=== PATIENT | female | born 1980 | race African-American/Black ===

== ENCOUNTER 2020-12-18 15:41 | Inpatient (IN) | payer OTHER ==
[2020-12-18 17:57] VITALS: BMI 22.3
[2020-12-18] MEDS ORDERED: IBUPROFEN 400 MG TABLET (FP) PO PRN (20:50)
[2020-12-18] MEDS ORDERED: MAGNESIUM CITRATE 300 ML BOTTLE PO PRN (20:50)
[2020-12-18] MEDS ORDERED: guaiFENesin 200 MG/10 ML 10 ML UNIT-DOSE CUPS PO PRN (20:50)
[2020-12-18] MEDS ORDERED: LOPERAMIDE HCL 2 MG CAPSULE PO PRN (20:50)
[2020-12-18] MEDS ORDERED: hydrOXYzine PAMOATE 25 MG CAPSULE (FP) PO PRN (20:50)
[2020-12-18] MEDS ORDERED: ACETAMINOPHEN 325 MG TABLET (FP) PO PRN (20:50)
[2020-12-18] MEDS ORDERED: MAGNESIUM HYDROX 2400MG/30ML ORAL SUSPENSION 30 ML CUP PO PRN (20:50)
[2020-12-18] MEDS ORDERED: MAG HYDROX/AL HYDROX/SIMETH 30 ML UNIT-DOSE CUP PO PRN (20:50)
[2020-12-18] MEDS ORDERED: P-EPHED 60MG/TRIPROLIDI 2.5MG TABLET PO PRN (20:50)
[2020-12-18] MEDS ORDERED: MELATONIN 5 MG TABLETS PO SCH (22:00)
[2020-12-18] MEDS ORDERED: THIAMINE HCL 100 MG TABLET (FP) PO SCH (22:00)
[2020-12-18] MEDS ORDERED: PT OWN MED DRAWER 7, Y5N ONE (23:46)
[2020-12-19 07:28] VITALS: BP 152/109; PULSE 74; TEMP 97.6
[2020-12-19] MEDS ORDERED: PRENATAL VITAMINS W/ FOLIC ACID TABLET (FP) PO SCH (10:00)
[2020-12-19] MEDS ORDERED: cloNIDine HCL 0.1 MG TABLET PO PRN (10:55)
[2020-12-19 11:18] LABS: HEMATOCRIT 35.4 % (32.4-45.2); HEMOGLOBIN 11.9 GM/dL (10.7-15.3); MCH 31.4 pg (25.7-33.7); MCHC 33.6 g/dl (32.0-36.0); MEAN CELL VOLUME 93.6 fl (80-96); MEAN PLT VOLUME 10.2 fl (7.5-11.1); PLATELET COUNT 213 10^3/uL (134-434); RBC 3.79 M/mm3 (3.60-5.2); RDW 14.2 % (11.6-15.6); WHITE BLOOD COUNT 5.6 K/mm3 (4.0-10.0)
[2020-12-19 11:33] LABS: ALBUMIN 3.4 g/dl (3.4-5.0); BLOOD UREA NITROGEN 10.8 mg/dL (7-18); CALCIUM 8.5 mg/dL (8.5-10.1)
[2020-12-19 11:37] LABS: CREATININE 0.8 mg/dL (0.55-1.3)
[2020-12-19 11:38] LABS: BILIRUBIN,TOTAL 0.3 mg/dL (0.2-1); TOT PROT 6.9 g/dl (6.4-8.2)
[2020-12-19] MEDS ORDERED: PT OWN MED DRAWER 7, Y5N ONE (17:50)
[2020-12-19] MEDS ORDERED: risperiDONE 2 MG TABLET PO SCH (22:00)
[2020-12-19] MEDS ORDERED: MIRTAZAPINE 15 MG TABLET (FP) PO SCH (22:00)
[2020-12-19] MEDS ORDERED: DIVALPROEX SODIUM 250 MG TABLET E.C. PO SCH (22:00)
[2020-12-20] MEDS ORDERED: BENZTROPINE MESYLATE 1 MG TABLET PO SCH (10:00)
== END 2020-12-19 17:54 | disposition left against medical advice (07) | DRG 894 ==
LOC: YASAS 15:41 → Y5N 20:42 → Y3N 22:35 → Y5N 22:36
PROVIDERS: ADMIT Allergy & Immunology; ATTEND Allergy & Immunology
PROC: HZ42ZZZ Group Counseling for Substance Abuse Treatment, Cognitive-Behavioral (ICD-10-PCS; principal; 2020-12-18)
DX: F10.20 Alcohol dependence, uncomplicated (principal); F14.20 Cocaine dependence, uncomplicated; F19.282 Other psychoactive substance dependence with psychoactive substance-induced sleep disorder; F12.20 Cannabis dependence, uncomplicated; F17.210 Nicotine dependence, cigarettes, uncomplicated; F20.9 Schizophrenia, unspecified; F19.24 Other psychoactive substance dependence with psychoactive substance-induced mood disorder; F32.9 Major depressive disorder, single episode, unspecified; Z59.0 Homelessness
CPT/HCPCS: 36415; 80053; 80164; 81025; 85027; 86780; C9803; J0735; U0003; U0005

== ENCOUNTER 2024-07-29 12:05 | Inpatient (IN) | payer OTHER ==
[2024-07-29 12:56] VITALS: RESP 16; BMI 22.6
[2024-07-29] MEDS ORDERED: ACETAMINOPHEN 325 MG TABLET (FP) PO PRN (13:09)
[2024-07-29] MEDS ORDERED: hydrOXYzine PAMOATE 25 MG CAPSULE (FP) PO PRN (13:09)
[2024-07-29] MEDS ORDERED: IBUPROFEN 600 MG TABLET (FP) PO PRN (13:09)
[2024-07-29] MEDS ORDERED: guaiFENesin 600 MG TABLET.ER (FP) PO PRN (13:09)
[2024-07-29] MEDS ORDERED: POLYETHYLENE GLYCOL (HEALTHYLAX) 3350 17 GM PACKET PO PRN (13:09)
[2024-07-29] MEDS ORDERED: MAGNESIUM HYDROX 2400MG/30ML ORAL SUSPENSION 30 ML CUP PO PRN (13:09)
[2024-07-29] MEDS ORDERED: BENZOCAINE/MENTHOL (CHLORASEPTIC ) LOZENGE MM PRN (13:09)
[2024-07-29] MEDS ORDERED: MAG HYDROX/AL HYDROX/SIMETH 30 ML UNIT-DOSE CUP PO PRN (13:09)
[2024-07-29] MEDS ORDERED: BENZONATATE 200 MG CAPSULE PO PRN (13:09)
[2024-07-29] MEDS ORDERED: LOPERAMIDE HCL 2 MG CAPSULE PO PRN (13:09)
[2024-07-29] MEDS ORDERED: IBUPROFEN 400 MG TABLET (FP) PO PRN (13:09)
[2024-07-29] MEDS ORDERED: NALOXONE (NARCAN) HCL 4 MG/0.1 ML SPRAY NS PRN (13:09)
[2024-07-29] MEDS: NICOTINE POLACRILEX 4 MG GUM BUC PRN (14:00)
[2024-07-29] MEDS: PRENATAL VITAMINS W/ FOLIC ACID TABLET (FP) PO SCH (14:12)
[2024-07-29] MEDS: NICOTINE 14 MG/24 HOURS TOPICAL PATCH TD SCH (14:12)
[2024-07-29] MEDS: TUBERCULIN PPD 5 TU/0.1ML SYRINGE (IN PATIENT USE ONLY) ID ONE (14:18)
[2024-07-29] MEDS: amLODIPine BESYLATE 5 MG TABLET (FP) PO SCH (17:15)
[2024-07-29 18:38] VITALS: BP 160/104; PULSE 73; TEMP 97.7
[2024-07-29] MEDS ORDERED: THIAMINE 100 MG TABLET PO SCH (22:00)
[2024-07-29] MEDS ORDERED: BENZTROPINE MESYLATE 1 MG TABLET PO SCH (22:00)
[2024-07-29] MEDS ORDERED: MELATONIN 5 MG TABLETS PO SCH (22:00)
[2024-07-29] MEDS ORDERED: risperiDONE 1 MG TABLET PO SCH (22:00)
== END 2024-07-29 19:52 | disposition left against medical advice (07) | DRG 894 ==
LOC: YASAS 12:05 → Y3NR 13:31
PROVIDERS: ADMIT Psychiatry & Neurology Pain Medicine; ATTEND Psychiatry & Neurology Pain Medicine
PROC: HZ42ZZZ Group Counseling for Substance Abuse Treatment, Cognitive-Behavioral (ICD-10-PCS; principal; 2024-07-29)
DX: F14.20 Cocaine dependence, uncomplicated (principal); F12.20 Cannabis dependence, uncomplicated; F17.210 Nicotine dependence, cigarettes, uncomplicated; F25.0 Schizoaffective disorder, bipolar type; I10 Essential (primary) hypertension
CPT/HCPCS: 36415; 80305; 80307; 81025; 87811; 93005; 93010